=== PATIENT | male | born 2000 | race Caucasian/White ===

== ENCOUNTER 2022-01-01 00:03 | Emergency (ER) | payer OTHER ==
[~2022-01-01] VITALS: Ht 185.4 cm; Wt 95.3 kg
== END 2022-01-01 08:18 | disposition home or self-care (01) ==
LOC: EMR PED 00:03 → ER 00:12
DX: S51.811A Laceration without foreign body of right forearm, initial encounter (principal); X58.XXXA Exposure to other specified factors, initial encounter; Y93.9 Activity, unspecified; Y92.9 Unspecified place or not applicable; Y99.9 Unspecified external cause status